=== PATIENT | female | born 1990 | race Caucasian/White ===

== ENCOUNTER 2020-02-01 04:04 | Inpatient (IN) ==
[2020-02-01] MEDS ORDERED: BUTORPHANOL 2 MG/ML VIAL IV PRN (04:26)
[2020-02-01] MEDS ORDERED: ONDANSETRON 4 MG/2 ML VIAL IV PRN ×3 (04:26→13:39)
[2020-02-01] MEDS ORDERED: FAMOTIDINE 20 MG/2 ML VIAL IV PRN (04:26)
[2020-02-01] MEDS ORDERED: MEPERIDINE 50 MG/1 ML VIAL IV PRN (04:26)
[2020-02-01] MEDS ORDERED: OXYTOCIN/LR 20 UNIT/1,000 ML BAG IV PRN (04:31)
[2020-02-01] MEDS ORDERED: CITRIC ACID/SODIUM CITRATE 30 ML UDCUP PO PRN (04:31)
[2020-02-01] MEDS ORDERED: ceFAZolin 3,000 MG in SYRINGE 1 EACH IV PRN (04:33)
[2020-02-01 05:22] LABS: Barbiturates Screen,Urine Negative (Negative); Benzodiazepines Screen,Urine Negative (Negative); Cannabinoid Screen,Urine Negative (Negative); Opiate Screen,Urine Negative (Negative); Phencyclidine Screen,Urine Negative (Negative)
[2020-02-01 05:55] LABS: Basophils % 0.3 % (0.0-0.8); Eosinophils # 0.1 10*3/uL (0.0-0.87); Eosinophils % 0.7 % (0.00-10.9); Hemoglobin 9.4 GM/DL (12.0-16.0); Immature Granulocytes % 0.6 %; Immature Granulocytes Absolute 0.06 #; Lymphocytes # 1.5 10*3/uL (1.4-4.0); Lymphocytes % 14.5 % (21.3-54.2); Mean Corpuscular HGB Conc 31.3 GM/DL (32-36); Mean Corpuscular Volume 79.8 FL (87-102); Mean Platelet Volume 10.5 FL (9.6-12.0); Monocytes % 3.9 % (1.7-12.7); Platelet Count 202 T/CUMM (130-400); Red Blood Count 3.76 MC/CUMM (3.8-5.5); Red Cell Distribution Width 15.3 % (9.3-17.3); White Blood Count 10.1 T/CUMM (4-12)
[2020-02-01] MEDS: LACTATED RINGERS 1,000 ML IV SCH ×2 (05:55→21:22)
[2020-02-01 06:27] LABS: Albumin 2.7 G/DL (3.4-5.0); Bilirubin,Total 0.5 MG/DL (0.2-1.0); Calcium 8.9 MG/DL (8.5-10.1); Osmolality,Calculated 274.5 MOS/KG (273-304); Total Protein 6.9 G/DL (6.4-8.3)
[2020-02-01 06:44] LABS: PT Patient Result 10.9 SECS (9.8-11.9); Partial Thromboplastin Time 27.3 SECS (23.9-33.8)
[2020-02-01 07:10] LABS: Hepatitis B Surface Ag Quant 0.42 Index; Hepatitis B Surface Ag Result Negative (Negative)
[2020-02-01] MEDS ORDERED: miSOPROStoL 200 MCG TABLET ONE (07:38)
[2020-02-01 07:39] LABS: HIV Antigen/Antibody Result Nonreactive (Nonreactive)
[2020-02-01] MEDS ORDERED: OXYTOCIN/LR 20 UNIT/1,000 ML BAG IV ONE ×3 (07:39→13:39)
[2020-02-01] MEDS ORDERED: TRANEXAMIC ACID 1,000 MG/10 ML VIAL ONE (07:39)
[2020-02-01] MEDS ORDERED: METHYLERGONOVINE 0.2 MG/1 ML AMP ONE (07:39)
[2020-02-01] MEDS ORDERED: CARBOPROST TROMETHAMINE 250 MCG/ML AMP IM ONE (07:39)
[2020-02-01] MEDS ORDERED: BUPIVACAINE SPINAL 0.75% 2 ML AMP SPINAL ONE (09:10)
[2020-02-01] MEDS ORDERED: PHENYLEPHRINE 1 MG/10 ML SYRINGE IV ONE (09:10)
[2020-02-01] MEDS ORDERED: MORPHINE 10 MG/10 ML VIAL ONE (09:10)
[2020-02-01 10:13] LABS: Cord Arterial Blood HCO3 22.3 MMOL/L; Cord Venous Blood HCO3 22.1 MMOL/L; Cord Venous Blood PCO2 38.4 MMHG; Cord Venous Blood PO2 32.8 MMHG
[2020-02-01] MEDS ORDERED: IBUPROFEN 800 MG TABLET PO PRN ×2 (10:41→13:39)
[2020-02-01] MEDS ORDERED: ACETAMINOPHEN 325 MG TABLET PO PRN ×2 (10:41→13:39)
[2020-02-01] MEDS ORDERED: MAGNESIUM HYDROXIDE SUSP 30 ML UDCUP PO PRN ×2 (10:41→13:39)
[2020-02-01] MEDS ORDERED: SIMETHICONE CHEW 80 MG TABLET PO PRN ×2 (10:41→13:39)
[2020-02-01] MEDS ORDERED: RHO(D) IMMUNE GLOBULIN 300 MCG SYRINGE IM ONE ×2 (10:41→13:39)
[2020-02-01] MEDS ORDERED: MIDAZOLAM 2 MG/2 ML VIAL ONE (10:45)
[2020-02-01] MEDS ORDERED: fentaNYL 100 MCG/2 ML VIAL ONE (10:45)
[2020-02-01] MEDS ORDERED: KETAMINE 500 MG/10 ML VIAL ONE (10:46)
[2020-02-01] MEDS ORDERED: propofoL 200 MG/20 ML VIAL IV ONE (10:46)
[2020-02-01] MEDS ORDERED: LACTATED RINGERS 1,000 ML IV SCH ×2 (11:00→14:00)
[2020-02-01] MEDS ORDERED: ceFAZolin 1,000 MG in SYRINGE 1 EACH IV SCH (11:00)
[2020-02-01] MEDS: ceFAZolin 1,000 MG in SYRINGE 1 EACH IV SCH (17:59)
[2020-02-01] MEDS: KETOROLAC 30 MG/1 ML VIAL IV SCH (18:59)
[2020-02-01] MEDS: ACETAMINOPHEN 500 MG TABLET PO SCH (19:24)
[2020-02-01 20:06] LABS: Basophils % 0.4 % (0.0-0.8); Eosinophils # 0.1 10*3/uL (0.0-0.87); Hematocrit 25.3 VOL% (35.7-47.0); Immature Granulocytes % 0.8 %; Immature Granulocytes Absolute 0.08 #; Lymphocytes # 1.6 10*3/uL (1.4-4.0); Lymphocytes % 15.4 % (21.3-54.2); Mean Corpuscular HGB Conc 31.6 GM/DL (32-36); Mean Corpuscular Volume 81.9 FL (87-102); Mean Platelet Volume 10.9 FL (9.6-12.0); Monocytes % 5.6 % (1.7-12.7); Neutrophils % 76.8 % (38.7-73.9); Platelet Count 177 T/CUMM (130-400); Red Blood Count 3.09 MC/CUMM (3.8-5.5); Red Cell Distribution Width 15.6 % (9.3-17.3); White Blood Count 10.3 T/CUMM (4-12)
[2020-02-01] MEDS ORDERED: DOCUSATE SODIUM 100 MG CAPSULE PO SCH (21:00)
[2020-02-01] MEDS: DOCUSATE SODIUM 100 MG CAPSULE PO SCH (21:22)
[2020-02-02] MEDS: ceFAZolin 1,000 MG in SYRINGE 1 EACH IV SCH (01:29)
[2020-02-02] MEDS: KETOROLAC 30 MG/1 ML VIAL IV SCH ×2 (01:30→07:22)
[2020-02-02] MEDS: ACETAMINOPHEN 500 MG TABLET PO SCH (03:38)
[2020-02-02] MEDS: oxyCODONE/ACETAMINOPHEN 5-325 MG TABLET PO PRN ×2 (06:34→14:08)
[2020-02-02] MEDS ORDERED: MULTIVITAMIN (PRENATAL) TABLET PO SCH (09:00)
[2020-02-02] MEDS: MULTIVITAMIN (PRENATAL) TABLET PO SCH (09:10)
[2020-02-02] MEDS: DOCUSATE SODIUM 100 MG CAPSULE PO SCH ×2 (09:10→22:18)
[2020-02-03] MEDS ORDERED: SODIUM CHLORIDE 0.9% 1,000 ML IV PRN (01:56)
[2020-02-03 07:54] VITALS: BP 152/88
[2020-02-03] MEDS: DOCUSATE SODIUM 100 MG CAPSULE PO SCH (08:12)
[2020-02-03] MEDS: MULTIVITAMIN (PRENATAL) TABLET PO SCH (08:12)
[2020-02-03] MEDS ORDERED: RHO(D) IMMUNE GLOBULIN 300 MCG SYRINGE IM ONE (08:30)
[2020-02-03] MEDS: oxyCODONE/ACETAMINOPHEN 5-325 MG TABLET PO PRN (08:47)
[2020-02-03] MEDS ORDERED: FERROUS SULFATE 325 MG TABLET PO SCH (09:00)
[2020-02-03] MEDS ORDERED: ONDANSETRON 4 MG TABLET PO SCH (12:00)
== END 2020-02-03 13:20 | disposition home or self-care (01) | DRG 788 ==
LOC: N.LDOUT 04:04 → N.LD 04:07 → N.OB 02-03 07:32
PROVIDERS: ADMIT Obstetrics & Gynecology; ATTEND Obstetrics & Gynecology
PROC: LDCSECT (ICD-10-PCS; 2020-02-01 07:30)